=== PATIENT | female | born 1985 | race Two or more races ===

== ENCOUNTER 2017-03-14 10:19 | Emergency (ER) | payer OTHER ==
[~2017-03-14] VITALS: Ht 167.6 cm; Wt 63.5 kg
--- NOTE | 2017-03-14 10:30 | Emergency Room Report ---
History of Present Illness General Chief Complaint: Seizure Source: Patient Present Illness HPI Patient had a witnessed seizure at work Patient has history of seizure activity She last had a seizure about 6 months ago patient is on Depakote At this time was mildly postictal however started to feel improved Had a mild headache Denies any chest pain or shortness of breath denies any back or flank pain denies any focal weakness Allergies: Coded Allergies: No Known Allergies (Unverified , 03/14/17) Patient History Past Medical History: see triage record Pertinent Family History: none Reviewed Nursing Documentation: PMH: Agreed, PSxH: Agreed Nursing Documentation-PMH Hx Cardiac Problems: No Hx Hypertension: No Hx Pacemaker: No Hx Asthma: No Hx COPD: No Hx Diabetes: No Hx Cancer: No Hx Gastrointestinal Problems: No Hx Dialysis: No History Of Psychiatric Problem: No Hx Neurological Problems: No Hx Cerebrovascular Accident: No Hx Seizures: Yes Review of Systems All Other Systems: negative except mentioned in HPI Physical Exam Vital Signs Date Time Temp Pulse Resp B/P Pulse Ox O2 Delivery O2 Flow Rate FiO2 03/14/17 10:07 98.1 78 16 107/73 98 Room Air Sp02 EP Interpretation: reviewed, normal General Appearance: well appearing, no apparent distress Head: normocephalic, atraumatic Eyes: bilateral eye EOMI, bilateral eye PERRL ENT: hearing grossly normal, TMs + canals normal, uvula midline, other - Small abrasion to back of tongue Neck: full range of motion, supple, no meningismus, no bony tend Respiratory: lungs clear, normal breath sounds, no rhonchi, no respiratory distress, no retraction, no accessory muscle use Cardiovascular #1: normal peripheral pulses, regular rate, rhythm, no edema, no gallop, no JVD, no murmur Gastrointestinal: normal bowel sounds, non tender, soft, no mass, no organomegaly, non-distended, no guarding, no hernia, no pulsatile mass, no rebound Genitourinary: no CVA tenderness Musculoskeletal: normal inspection Neurologic: oriented x3, responsive, it quality assurance analyst III-XII nml as tested, motor strength/ tone normal, sensory intact Psychiatric: mood/affect normal Skin: normal color, no rash, warm/dry, palpation normal Lymphatic: normal inspection, no adenopathy Medical Decision Making Diagnostic Impression: Primary Impression: Seizure disorder Additional Impression: ER Course Patient's baseline blood work appears appropriate CT imaging has not been obtained as the patient has history of seizure disorder and at this time is neurologically intact Depakote level was mildly low Patient's urine test was positive Beta Quant is obtained which is also minimally elevated Abdominal ultrasound does not reveal any obvious acute pathology Family at this time verbalizes that the do want to terminate the [facility] As the patient is planning on termination, she will continue on her Depakote However she was notified that this medicine can be dangerous during , patient is aware of this and reports that she has been through it with her previous At this time eclampsia/preeclampsia considered however the patient's blood pressure is appropriate This is very early in the And the patient stable for close outpatient follow Labs Test 03/14/17 10:40 03/14/17 10:50 03/14/17 11:06 White Blood Count 5.0 K/UL (4.8-10.8) Red Blood Count 3.40 M/UL (4.20-5.40) Hemoglobin 9.9 G/DL (12.0-16.0) Hematocrit 31.2 % (37.0-47.0) Mean Corpuscular Volume 92 FL (80-99) Mean Corpuscular Hemoglobin 29.2 PG (27.0-31.0) Mean Corpuscular Hemoglobin Concent 31.8 G/DL (32.0-36.0) Red Cell Distribution Width 13.0 % (11.6-14.8) Platelet Count 177 K/UL (150-450) Mean Platelet Volume 7.7 FL (6.5-10.1) Neutrophils (%) (Auto) 69.0 % (45.0-75.0) Lymphocytes (%) (Auto) 19.7 % (20.0-45.0) Monocytes (%) (Auto) 9.3 % (1.0-10.0) Eosinophils (%) (Auto) 0.8 % (0.0-3.0) Basophils (%) (Auto) 1.1 % (0.0-2.0) Sodium Level 137 mEQ/L (135-145) Potassium Level 4.8 mEQ/L (3.4-4.9) Chloride Level 100 mEQ/L (98-107) Carbon Dioxide Level 20 mEQ/L (20-30) Anion Gap 17 (5-15) Blood Urea Nitrogen 12 mg/dL (7-23) Creatinine 0.7 mg/dL (0.5-0.9) Estimat Glomerular Filtration Rate > 60 mL/min (>60) Glucose Level 88 mg/dL (74-106) Calcium Level 9.2 mg/dL (8.6-10.2) Valproic Acid (Depakene) Level 48 ug/mL (50-100) Urine Color Pale yellow Urine Appearance Clear Urine pH 6 (4.5-8.0) Urine Specific [place] 1.020 (1.005-1.035) Urine Protein Negative (NEGATIVE) Urine Glucose (UA) Negative (NEGATIVE) Urine Ketones 2+ (NEGATIVE) Urine Occult Blood Negative (NEGATIVE) Urine Nitrite Negative (NEGATIVE) Urine Bilirubin Negative (NEGATIVE) Urine Urobilinogen Normal MG/DL (0.0-1.0) Urine Leukocyte Esterase Negative (NEGATIVE) Urine HCG, Qualitative Positive Human Chorionic Gonadotropin, Quant 261 mIU/mL Rhythm Strip Diag. Results EP Interpretation: yes Rate: 88 Rhythm: NSR, no PVC's, no ectopy CT/MRI/US Diagnostic Results CT/MRI/US Diagnostic Results : Impression pelvic ultrasound:Impression: No intrauterine identified. Differential considerations include very early , spontaneous , ectopic . Correlate with serial beta hCGs, consider followup sonography is indicated Trace free cul-de-sac fluid, presumably physiologic Last Vital Signs Date Time Temp Pulse Resp B/P Pulse Ox O2 Delivery O2 Flow Rate FiO2 03/14/17 10:07 98.1 78 16 107/73 98 Room Air Status: improved Disposition: HOME, SELF-CARE Condition: Improved Additional Instructions: Patient is provided with the discharge instructions notified to follow up with primary doctor in the next 2-3 days otherwise return to the er with any worsening symptoms. Please note that this report is being documented using Synchro technology. This can lead to erroneous entry secondary to incorrect interpretation by the dictating instrument. ELMO BENNETT D.O. Mar 14, 2017 10:30
[2017-03-14] MEDS ORDERED: DEPAKOTE250 MG PO (10:32)
[2017-03-14 11:00] VITALS: BP 107/73
[2017-03-14 11:12] LABS: BASOPHILS % (AUTO) 1.1 % (0.0-2.0); EOSINOPHILS % (AUTO) 0.8 % (0.0-3.0); LYMPHOCYTES % (AUTO) 19.7 % (20.0-45.0); MEAN CORPUSCULAR HEMOGLOBIN 29.2 PG (27.0-31.0); MEAN CORPUSCULAR HGB CONC 31.8 G/DL (32.0-36.0); MEAN CORPUSCULAR VOLUME 92 FL (80-99); MEAN PLATELET VOLUME 7.7 FL (6.5-10.1); MONOCYTES % (AUTO) 9.3 % (1.0-10.0); PLATELET COUNT 177 K/UL (150-450)
[2017-03-14 11:14] LABS: APPEARANCE,URINE CLEAR; KETONES,URINE 2+ (NEGATIVE); LEUKOCYTE ESTERASE ,URINE NEGATIVE (NEGATIVE); NITRITE,URINE NEGATIVE (NEGATIVE); PH,URINE 6 (4.5-8.0); PROTEIN,URINE NEGATIVE (NEGATIVE); UROBILINOGEN,URINE NORMAL MG/DL (0.0-1.0)
[2017-03-14 12:01] LABS: ANION GAP 17 (5-15); CALCIUM 9.2 mg/dL (8.6-10.2); CARBON DIOXIDE 20 mEQ/L (20-30); CHLORIDE 100 mEQ/L (98-107); CREATININE 0.7 mg/dL (0.5-0.9); GLOMERULAR FILTRATION RATE > 60 mL/min (>60); HEMOLYSIS 28; POTASSIUM 4.8 mEQ/L (3.4-4.9); SODIUM 137 mEQ/L (135-145); VALPROIC ACID 48 ug/mL (50-100)
[2017-03-14 13:04] VITALS: BP 104/71
[2017-03-14 13:05] VITALS: BP 104/71
--- NOTE | 2017-03-14 16:43 | Diagnostic Imaging Report ---
Indication: PAIN, positive test Technique: Transabdominal and transvaginal images Comparison: None Findings: Uterus measures 10 cm length by 5.9 cm AP. Endometrium measures 20 mm thick. No intrauterine is demonstrated. Normal myometrium. Right ovary measures 3.7 cm length. The left ovary measures 3.8 cm in length. A collapsed, possibly ruptured, cyst is seen on the right. Another possibly collapsed cyst is seen on the left. Trace free fluid seen in the pelvic cul-de-sac. Adnexal mass. Normal ovarian vascularity demonstrated. Impression: No intrauterine identified. Differential considerations include very early , spontaneous , ectopic . Correlate with serial beta hCGs, consider followup sonography is indicated Trace free cul-de-sac fluid, presumably physiologic
== END 2017-03-14 13:11 | disposition home or self-care (01) ==
LOC: EDBD 10:19 → EMR 11:16
DX: G40.909 Epilepsy, unspecified, not intractable, without status epilepticus (principal); O26.90 Pregnancy related conditions, unspecified, unspecified trimester; Z3A.00 Weeks of gestation of pregnancy not specified; N83.202 Unspecified ovarian cyst, left side; R51 Headache; S00.512A Abrasion of oral cavity, initial encounter; X58.XXXA Exposure to other specified factors, initial encounter; Y93.9 Activity, unspecified; Y92.9 Unspecified place or not applicable
CPT/HCPCS: 36415; 76830; 76856; 80048; 80164; 81003; 81025; 84702; 85025; 99284